=== PATIENT | female | born 1960 | race Caucasian/White ===

== ENCOUNTER → 2018-07-17 | Outpatient (CLI) | payer OTHER ==
--- NOTE | 2018-07-18 11:34 | ECHOF ---
Referral Reason:Cardiomyopathy I42.9 MEASUREMENTS -------- HEIGHT: 160.0 cm WEIGHT: 94.3 kg BP: RVIDd: 2.9 cm (< 3.3) IVSd: 1.0 cm (0.6 - 1.1) LVIDd: 3.8 cm (3.9 - 5.3) LVPWd: 1.2 cm (0.6 - 1.1) IVSs: 1.3 cm LVIDs: 2.9 cm LVPWs: 1.3 cm LA Diam: 2.9 cm (2.7 - 3.8) LAESV Index (A-L): 23.11 ml/m Ao Diam: 2.6 cm (2.0 - 3.7) AV Cusp: 1.8 cm (1.5 - 2.6) LA Diam: 3.7 cm (2.7 - 3.8) MV EXCURSION: 15.488 mm (> 18.000) MV EF SLOPE: 69 mm/s (70 - 150) EPSS: 0.2 cm MV E Harish: 0.62 m/s MV DecT: 253 ms MV A Harish: 1.03 m/s MV E/A Ratio: 0.60 RAP: 5.00 mmHg RVSP: 19.26 mmHg FINDINGS -------- Sinus rhythm. This was a technically good study. LV size, wall thickness and systolic function are normal, with an EF greater than 55%. The left trisha tricular size is normal. The right ventricle is normal in size. The left atrial size is normal. The aortic valve is trileaflet, and appears structurally normal. No aortic stenosis or regurgitation. Mild mitral annular calcification present. Mild mitral regurgitation is present. Mild tricuspid regurgitation present. There is no evidence of pulmonary hypertension. The right v entricular systolic pressure, as measured by Doppler, is 19.26mmHg. There is no pulmonic regurgitation present. The aortic root size is normal. There is no pericardial effusion. CONCLUSIONS -------- 1. LV size, wall thickness and systolic function are normal, with an EF greater than 55%. 2. The left ventricular size is normal. 3. The right ventricle is normal in size. 4. The left atrial size is normal. 5. The aortic valve is trileaflet, and appears structurally normal. No aortic stenosis or regurgitati on. 6. Mild mitral annular calcification present. 7. Mild mitral regurgitation is present. 8. Mild tricuspid regurgitation present. 9. There is no evidence of pulmonary hypertension. 10. The right ventricular systolic pressure, as measured by Doppler, is 19.26mmHg. 11. There is no pulmonic regurgitation present. 12. The aortic root size is normal. 13. There is no pericardial effusion. IT CORPORATE RECRUITER: Sofia Holloway RDCS
== END | disposition home or self-care (01) ==
LOC: RADECHMAIN 12:57
PROVIDERS: ATTEND Family Medicine
DX: I08.1 Rheumatic disorders of both mitral and tricuspid valves (principal)
CPT/HCPCS: 93306

== ENCOUNTER → 2021-01-07 | Outpatient (CLI) | payer OTHER ==
--- NOTE | 2021-01-07 12:56 | US ---
EXAMINATION TYPE: US thyroid st tissue head/neck DATE OF EXAM: 01/07/2021 COMPARISON: NONE CLINICAL HISTORY: R09.89 signs involving the circulatory and respir. Feeling of food stuck in throat GLAND SIZE: Right Lobe: 3.8 x 1.3 x 1.3 cm Overall Parenchyma: heterogenous Left Lobe: 4.2 x 1.3 x 1.2 cm Overall Parenchyma: heterogeneous Isthmus Thickness: 0.4 cm NODULES RIGHT: # of nodules measured on right: 0 LEFT: # of nodules measured on left: 2 1. 0.9 X 0.6 x 0.5 cm, mid mid, solid or almost completely solid, hyperechoic nodule, which is wide r than tall, with ill-defined margins, without echogenic foci. Prior size: No previous 2. 0.5 X 0.3 x 0.3 cm, upper medial, solid or almost completely solid, hypoechoic nodule, which is taller than wide, with ill-defined margins, without echogenic foci. Prior size: No previous ISTHMUS: # of nodules measured in the isthmus: Right sided 1. 0.9 X 0.7 x 0.6 cm solid or almost completely solid, isoechoic nodule, which is wider than tall, with smooth margins, without echogenic foci. Prior size: No Previous Bilateral neck scanned, no evidence of lymphadenopathy. IMPRESSION: Nonspecific subcentimeter nodularity. Continued follow-up advised.
== END | disposition home or self-care (01) ==
LOC: RADUSWWP 12:14
PROVIDERS: ATTEND Family Medicine
DX: E04.2 Nontoxic multinodular goiter (principal)
CPT/HCPCS: 76536

== ENCOUNTER → 2022-12-15 | Outpatient (CLI) | payer OTHER ==
--- NOTE | 2022-12-15 11:37 | MM ---
Reason for Exam: Screening (asymptomatic). Last mammogram was performed 11 year(s) and 3 month(s) ago. Patient History: Menarche at age 12. First Full-Term at age 21. Postmenopausal. Risk Values: Diane 5 year model risk: 1.4%. NCI Lifetime model risk: 6.0%. Prior Study Comparison: 05/15/2004 Bilateral Screening Mammogram, [facility]. 05/21/2004 Right Screening Mammogram, [facility]. 09/08/2011 Bilateral Screening Mammogram, [facility]. Tissue Density: The breast tissue is heterogeneously dense. This may lower the sensitivity of mammography. Findings: Analyzed By CAD. No suspicious group of microcalcifications within either breast. No architectural distortion. Focal asymmetry demonstrated within the upper inner right breast at posterior depth with additional asymmetry demonstrated on the CC view in the inner right breast at middle depth. Additional asymmetry demonstrated within the left breast on the MLO view superiorly at posterior depth. Overall Assessment: Incomplete: need additional imaging evaluation, BI-RAD 0 Management: Diagnostic Mammogram of both breasts. A clinical breast exam by your physician is recommended on an annual basis and results should be correlated with mammographic findings. [facility] will attempt to contact patient to return for supplemental views and ultrasound if indicated. Electronically signed and approved by: Connor Banuelos D.O.
== END | disposition home or self-care (01) ==
LOC: RADMAMWWP 07:33
PROVIDERS: ATTEND Family Medicine
DX: Z12.31 Encounter for screening mammogram for malignant neoplasm of breast (principal); Z78.0 Asymptomatic menopausal state
CPT/HCPCS: 77067

== ENCOUNTER → 2022-12-17 | Outpatient (CLI) | payer OTHER ==
--- NOTE | 2022-12-17 12:03 | USB ---
Reason for Exam: Additional evaluation requested from abnormal screening. Patient History: Menarche at age 12. First Full-Term at age 21. Postmenopausal. Risk Values: Diane 5 year model risk: 1.4%. NCI Lifetime model risk: 6.0%. Technique: Method: Targeted. Prior Study Comparison: 05/21/2004 Right Screening Mammogram, [facility]. 09/08/2011 Bilateral Screening Mammogram, [facility]. 12/15/2022 Bilateral MG screening mammo w CAD, [facility]. Findings: The medial section of the breast of the right breast, the axilla of the right breast and the retroareolar of the right breast were scanned. There is a simple appearing cyst measuring 0.5 x 0.4 x 0.3 cm 3 cm from the nipple at the 1:00 position right breast. This area appears to correspond to mammographic abnormality. Overall Assessment: Probably benign, BI-RAD 3 Management: Diagnostic Mammogram of the right breast in 6 months. A clinical breast exam by your physician is recommended on an annual basis and results should be correlated with mammographic findings. This exam should not preclude additional follow-up of suspicious palpable abnormalities. Results were given to the patient verbally at the time of exam. Electronically signed and approved by: Ayden Saab D.O. Radiologis
--- NOTE | 2022-12-17 12:05 | MM ---
Reason for Exam: Additional evaluation requested from abnormal screening. Last screening mammogram was performed less than 1 month ago. Patient History: Menarche at age 12. First Full-Term at age 21. Postmenopausal. Risk Values: Diane 5 year model risk: 1.4%. Diane 5 year model risk: 1.4%. NCI Lifetime model risk: 6.0%. NCI Lifetime model risk: 6.0%. Prior Study Comparison: 09/08/2011 Bilateral Screening Mammogram, [facility]. 12/15/2022 Bilateral MG screening mammo w CAD, [facility]. Tissue Density: There are scattered fibroglandular densities. Findings: Analyzed By CAD. Right breast: Under compression, there is some persistence of rounded density in the upper inner aspect right breast. Ultrasound is recommended for additional evaluation. Left breast: Under compression no persistent suspicious abnormality in the upper left breast is evident. Overall Assessment: Incomplete: need additional imaging evaluation, BI-RAD 0 Management: Diagnostic Breast Ultrasound of the right breast. A negative mammogram report should not preclude additional follow up of suspicious palpable abnormalities. Patient should continue monthly self breast exam. A clinical breast exam by your physician is recommended on an annual basis and results should be correlated with mammographic findings. Electronically signed and approved by: Ayden Saab D.O. Radiologis
== END | disposition home or self-care (01) ==
LOC: RADMAMWWP 10:20
PROVIDERS: ATTEND Family Medicine
DX: R92.8 Other abnormal and inconclusive findings on diagnostic imaging of breast (principal)
CPT/HCPCS: 77062; 77066

== ENCOUNTER → 2023-01-28 | Outpatient (CLI) | payer OTHER ==
--- NOTE | 2023-01-28 14:21 | MR ---
EXAMINATION TYPE: MR knee RT wo con DATE OF EXAM: 01/28/2023 COMPARISON: none HISTORY: Rt knee pain, swelling TECHNIQUE: Multiplanar, multisequence imaging of the right knee is performed without IV contrast. FINDINGS: MEDIAL MENISCUS: Radial tear posterior horn medial meniscus. Anterior horn is intact. LATERAL MENISCUS: Anterior and posterior horns are intact without tear. CRUCIATE LIGAMENTS: The anterior and posterior cruciate ligaments are intact and unremarkable. COLLATERAL LIGAMENTS: The medial collateral ligament and lateral collateral ligament complex are inta ct and unremarkable. EXTENSOR MECHANISM: Visualized quadriceps and patellar tendons are intact. EFFUSION: Small to moderate joint effusion. POPLITEAL CYST: No popliteal/escobar cyst. TRICOMPARTMENT SPACES: Moderate narrowing medial tibiofemoral joint space with mild patellofemoral ina int space narrowing. Mild intracondylar spur formation seen. CARTILAGE: Intact BONE MARROW SIGNAL: No focal abnormal marrow signal is appreciated. OTHER: No additional significant abnormality is appreciated. IMPRESSION: 1.Radial tear posterior horn medial meniscus. 2. [id number] joint effusion. 3. Changes of osteoarthritis.
== END | disposition home or self-care (01) ==
LOC: RADMRIMAIN 13:28
PROVIDERS: ATTEND Orthopaedic Surgery
DX: M23.8X1 Other internal derangements of right knee (principal); M17.11 Unilateral primary osteoarthritis, right knee; S83.241A Other tear of medial meniscus, current injury, right knee, initial encounter; M25.461 Effusion, right knee; X58.XXXA Exposure to other specified factors, initial encounter